=== PATIENT | female | born 1925 | race Caucasian/White ===

== ENCOUNTER 2017-02-06 14:53 | Inpatient (IN) | payer MEDICARE, OTHER ==
[~2017-02-06] VITALS: Ht 152.4 cm; Wt 79.4 kg
[~2017-02-06 14:53] MED LIST: Acetaminophen PO; Docusate Sodium PO; ZIPR80CA10 PO
[2017-02-06 15:28] LABS: BASOPHILS # (AUTO) 0.1 K/uL (0.0-8.0); BASOPHILS % (AUTO) 1.1 % (0.0-2.0); EOSINOPHILS # (AUTO) 0.1 K/uL (0.0-0.7); EOSINOPHILS % (AUTO) 1.2 % (0.0-7.0); HEMATOCRIT 36.1 % (37-47); LYMPHOCYTES # (AUTO) 1.9 K/uL (20.0-40.0); MEAN CORPUSCULAR HEMOGLOBIN 35.7 UUG (27.0-31.0); MEAN CORPUSCULAR HGB CONC 36 g/dL (32.0-37.0); MEAN CORPUSCULAR VOLUME 98.9 FL (81.0-99.0); MONOCYTES # (AUTO) 0.8 K/uL (2.0-10.0); NEUTROPHILS # (AUTO) 3.4 K/uL (1.8-8.9); NEUTROPHILS % (AUTO) 53.7 % (38.5-71.5); PLATELET COUNT (AUTO) 206 K/UL (150-450); RED BLOOD CELL COUNT(AUTO) 3.65 MIL/UL (4.2-5.4); RED CELL DISTRIBUTION WIDTH 13.8 % (11.5-14.5); WHITE BLOOD COUNT (AUTO) 6.3 K/UL (4.0-11.2)
[2017-02-06 15:31] LABS: CREATININE 1.2 mg/dL (0.6-1.3); POTASSIUM 3.4 mmol/L (3.5-5.1)
[2017-02-06 15:44] LABS: ALBUMIN 2.9 g/dL (3.4-5.0); BILIRUBIN,DIRECT 0.1 mg/dL (0.0-0.2); BILIRUBIN,TOTAL 0.3 mg/dL (0.2-1.0)
[2017-02-06] MEDS ORDERED: LORA-258 PO (16:26)
[2017-02-06] MEDS ORDERED: ZIPR80CA2 PO (16:26)
[2017-02-06] MEDS ORDERED: POTASSIUM PO (16:26)
[2017-02-06] MEDS ORDERED: FURO-151 PO (16:26)
[2017-02-06] MEDS ORDERED: PROG50VI3 PO (16:26)
--- NOTE | 2017-02-06 16:30 | NUR ---
pt requesting to sit on the bedside commode. tried to do so, pt co ble pain, unable to tolerate sitting on bedside commode. bed bailey provided per pt request.
[2017-02-06 17:45] VITALS: BP 123/65
--- NOTE | 2017-02-06 19:15 | NUR ---
PATIENT AWAKE, VERBALLY RESPONSIVE, NO SOB NO CHEST PAIN NOTED, KEPT CLEAN AND DRY, ELEVATE BILATERAL FEET WITH PILLOW NO S/S OF DISTRESS.
[2017-02-06] MEDS ORDERED: MAGNESIUM HYDROXIDE 30 ML LIQUID UDC PO PRN (19:45)
[2017-02-06] MEDS ORDERED: ONDANSETRON 4 MG/2 ML VIAL IV PRN (19:45)
[2017-02-06] MEDS ORDERED: LORAZEPAM 0.5 MG TABLET PO PRN (19:45)
[2017-02-06] MEDS ORDERED: MORPHINE SULFATE 2 MG/1 ML DISP.SYRIN IV PRN (19:45)
[2017-02-06] MEDS ORDERED: PROGESTERONE 100 MG PO SCH (19:45)
[2017-02-06] MEDS ORDERED: POTASSIUM CHLORIDE 20 MEQ TAB.PRT.SR PO ONE (19:45)
[2017-02-06] MEDS ORDERED: Medication Not On Formulary EA ([Acetaminophen] (Tylenol) 650 MG) PO PRN (19:45)
[2017-02-06] MEDS ORDERED: ACETAMINOPHEN 325 MG TABLET PO PRN (20:15)
[2017-02-06 20:18] VITALS: BP 115/62
[2017-02-06] MEDS: ZIPRASIDONE 80 MG CAPSULE PO SCH (20:29)
[2017-02-06] MEDS: DOCUSATE SODIUM 100 MG CAPSULE PO SCH (20:29)
[2017-02-06] MEDS ORDERED: ZIPRASIDONE 80 MG CAPSULE PO SCH ×2 (21:00)
[2017-02-06] MEDS ORDERED: Medication Not On Formulary EA ([Docusate Sodium] (Colace) 200 MG) PO SCH (21:00)
[2017-02-07 00:03] VITALS: BP 120/65
[2017-02-07 04:00] VITALS: BP 97/52
--- NOTE | 2017-02-07 05:11 | NUR ---
PATIENT SLEPT MOST OF THE NIGHT, ELEVATE BILATERAL FEET DUE TO SWELLING, NO SOB NO CHEST PAIN NOTED, KEPT CLEAN AND DRY, NO S/S OF DISTRESS.
[2017-02-07] MEDS: PANTOPRAZOLE SODIUM 40 MG TABLET.DR PO SCH (05:54)
[2017-02-07 06:32] LABS: BASOPHILS # (AUTO) 0.1 K/uL (0.0-8.0); BASOPHILS % (AUTO) 1.4 % (0.0-2.0); EOSINOPHILS # (AUTO) 0.2 K/uL (0.0-0.7); EOSINOPHILS % (AUTO) 2.8 % (0.0-7.0); HEMATOCRIT 30.8 % (37-47); HEMOGLOBIN 11.7 G/DL (12.0-16.0); LYMPHOCYTES # (AUTO) 2.1 K/UL (0.8-4.8); LYMPHOCYTES % (AUTO) 38.8 % (20.5-51.5); MEAN CORPUSCULAR HEMOGLOBIN 37.4 UUG (27.0-31.0); MEAN CORPUSCULAR HGB CONC 38 g/dL (32.0-37.0); MEAN CORPUSCULAR VOLUME 98.6 FL (81.0-99.0); MONOCYTES # (AUTO) 0.7 K/UL (0.1-1.30); MONOCYTES % (AUTO) 12.8 % (0.0-11.0); NEUTROPHILS # (AUTO) 2.4 K/UL (1.8-8.9); NEUTROPHILS % (AUTO) 44.2 % (38.5-71.5); PLATELET COUNT (AUTO) 193 K/UL (150-450); RED BLOOD CELL COUNT(AUTO) 3.12 MIL/UL (4.2-5.4); RED CELL DISTRIBUTION WIDTH 13.8 % (11.5-14.5); WHITE BLOOD COUNT (AUTO) 5.5 K/UL (4.0-11.2)
[2017-02-07 07:03] LABS: ALBUMIN 2.4 g/dL (3.4-5.0); BILIRUBIN,TOTAL 0.5 mg/dL (0.2-1.0); CALCIUM 8.7 mg/dL (8.5-10.1); CREATININE 1.1 mg/dL (0.6-1.3); MAGNESIUM 1.9 mg/dL (1.8-2.4); PHOSPHOROUS 3.3 mg/dL (2.5-4.9); POTASSIUM 3.8 mmol/L (3.5-5.1); TOTAL PROTEIN, SERUM 6.1 g/dL (6.4-8.2)
--- NOTE | 2017-02-07 07:30 | NUR ---
PT AWAKE IN BED, NO NEEDS AT THIS TIME, ALL SAFETY AND COMFORT MEASURES ATTENDED TO, CALL LIGHT IN REACH, WILL CONTINUE TO MONITOR
[2017-02-07] MEDS: Z GUARD REMEDY PASTE 57 GM TUBE TOP SCH ×2 (08:33→20:28)
[2017-02-07] MEDS: POTASSIUM CHLORIDE 8 MEQ CAPSULE.SA PO SCH ×2 (08:33→17:00)
[2017-02-07] MEDS: FUROSEMIDE 40 MG TABLET PO SCH (08:33)
[2017-02-07] MEDS ORDERED: POTASSIUM 8 MEQ PO SCH (09:00)
[2017-02-07 11:11] VITALS: BP 101/49
[2017-02-07] MEDS ORDERED: BARIUM SULFATE 450 ML ORAL.SUSP ONE (14:30)
[2017-02-07 15:27] VITALS: BP 104/51
[2017-02-07 15:36] LABS: *BILIRUBIN,URIN NEGATIVE (NEGATIVE); *BLOOD, URINE 1+ (NEGATIVE); *COLOR,URINE YELLOW (YELLOW); *KETONES,URINE NEGATIVE (NEGATIVE); *PROTEIN,URINE NEGATIVE (NEGATIVE); *UROBILINOGEN,URINE 0.2 E.U./dl (NORMAL); LEUKOCYTE ESTERASE ,URINE 1+ (NEGATIVE); NITRITE, URINE NEGATIVE (NEGATIVE); PH,URINE 7.5 (5.0-8.0); UGLUCOSE NEGATIVE (NEGATIVE)
[2017-02-07] MEDS ORDERED: NORMAL SALINE FLUSH 10 ML DISP.SYRIN ONE (15:39)
[2017-02-07] MEDS ORDERED: IOHEXOL 300MG/ML 100 ML INFUS..BTL ONE (15:39)
[2017-02-07] MEDS ORDERED: IV NORMAL SALINE 250 ML IV ONE (15:39)
[2017-02-07 15:48] LABS: *CLARITY,URINE HAZY (CLEAR)
[2017-02-07 15:49] LABS: SQUAMOUS EPITHELIAL CELL,UR MODERATE /HPF (NONE SEEN)
--- NOTE | 2017-02-07 17:05 | NUR ---
PT FINISHED CONTRAST, RADIOLOGY CALLED AND WILL BE PICKING UP PT IN 20 MIN
--- NOTE | 2017-02-07 17:50 | NUR ---
1700 POTASSIUM MEDICATION NOT GIVEN, PT NPO FOR CT SCAN. STILL HAS NOT BEEN PICKED UP.
--- NOTE | 2017-02-07 17:58 | NUR ---
RADIOLOGY HERE TO TAKE PT FOR CT SCAN
--- NOTE | 2017-02-07 18:26 | NUR ---
PT BACK FROM CT SCAN, IN NO ACUTE DISTRESS. NO CHANGES NOTED THROUGHOUT SHIFT, CALL LIGHT IN REACH AND DAUGHTER AT BEDSIDE
--- NOTE | 2017-02-07 19:30 | NUR ---
RECEIVED PT IN BED, RESTING. IN NO ACUTE SIGNS OF DISTRESS. FAMILY AT BEDSIDE. NO C/O PAIN AT THIS TIME. SAFETY OBSERVED. CALL LIGHT WITHIN REACH.
[2017-02-07 20:00] VITALS: BP 138/76
[2017-02-07] MEDS: DOCUSATE SODIUM 100 MG CAPSULE PO SCH (20:27)
[2017-02-07] MEDS: ZIPRASIDONE 80 MG CAPSULE PO SCH (20:27)
[2017-02-07] MEDS ORDERED: CEFTRIAXONE 1 G in IV DEXTROSE 5% 50 ML IV SCH (21:15)
[2017-02-07] MEDS ORDERED: CEFTRIAXONE 1 G VIAL ONE (22:25)
[2017-02-07 23:02] VITALS: BP 138/76
[2017-02-08 00:17] VITALS: BP 102/32
[2017-02-08 04:00] VITALS: BP 101/58
--- NOTE | 2017-02-08 05:57 | NUR ---
PT SLEPT MOST SHIFT, IN NO ACUTE SIGNS OF DISTRESS. HAD MODERATE SOFT BM X1 DURING SHIFT. GOOD PERICARE DONE. TURNED AND REPOSITIONED. SAFETY MAINTAINED. CALL LIGHT WITHIN REACH.
[2017-02-08] MEDS: PANTOPRAZOLE SODIUM 40 MG TABLET.DR PO SCH (06:13)
[2017-02-08 06:53] LABS: ALBUMIN 2.3 g/dL (3.4-5.0); BILIRUBIN,TOTAL 0.4 mg/dL (0.2-1.0); CALCIUM 8.2 mg/dL (8.5-10.1); CREATININE 1.2 mg/dL (0.6-1.3); MAGNESIUM 1.9 mg/dL (1.8-2.4); PHOSPHOROUS 3.9 mg/dL (2.5-4.9); POTASSIUM 3.6 mmol/L (3.5-5.1); TOTAL PROTEIN, SERUM 5.7 g/dL (6.4-8.2)
--- NOTE | 2017-02-08 07:00 | NUR ---
RECEIVED PATIENT FROM DIRECTOR OF MATERIALS MANAGEMENT
[2017-02-08 07:44] LABS: BASOPHILS # (AUTO) 0.1 K/uL (0.0-8.0); BASOPHILS % (AUTO) 1.1 % (0.0-2.0); EOSINOPHILS # (AUTO) 0.2 K/uL (0.0-0.7); EOSINOPHILS % (AUTO) 2.5 % (0.0-7.0); LYMPHOCYTES # (AUTO) 2.4 K/UL (0.8-4.8); LYMPHOCYTES % (AUTO) 36.4 % (20.5-51.5); MEAN CORPUSCULAR HEMOGLOBIN 31.1 UUG (27.0-31.0); MEAN CORPUSCULAR HGB CONC 33 g/dL (32.0-37.0); MEAN CORPUSCULAR VOLUME 93.3 FL (81.0-99.0); MONOCYTES # (AUTO) 0.8 K/UL (0.1-1.30); MONOCYTES % (AUTO) 11.7 % (0.0-11.0); NEUTROPHILS # (AUTO) 3.2 K/UL (1.8-8.9); NEUTROPHILS % (AUTO) 48.3 % (38.5-71.5); PLATELET COUNT (AUTO) 190 K/UL (150-450); RED BLOOD CELL COUNT(AUTO) 3.53 MIL/UL (4.2-5.4); RED CELL DISTRIBUTION WIDTH 13.8 % (11.5-14.5); WHITE BLOOD COUNT (AUTO) 6.7 K/UL (4.0-11.2)
[2017-02-08] MEDS: POTASSIUM CHLORIDE 8 MEQ CAPSULE.SA PO SCH ×2 (08:37→16:54)
[2017-02-08] MEDS: FUROSEMIDE 40 MG TABLET PO SCH (08:37)
[2017-02-08] MEDS: Z GUARD REMEDY PASTE 57 GM TUBE TOP SCH ×2 (08:44→20:41)
[2017-02-08] MEDS ORDERED: PATIENT MAY USE OWN MED- MD OK PO SCH (10:00)
--- NOTE | 2017-02-08 10:00 | NUR ---
PATIENT SEEN WALKING WITH PT, TOLERATED WELL
[2017-02-08 11:24] VITALS: BP 101/53
[2017-02-08 15:33] VITALS: BP 102/51
--- NOTE | 2017-02-08 16:21 | NUR ---
CONTINUE RESPIRATOY MONITORING, NO SIGNS OF DISTRESS OR C/O PAIN.
--- NOTE | 2017-02-08 18:52 | NUR ---
GAVE REPORT TO [employer], SAFETY CHECK, BED IN LOW POSITION, WHEELS LOCKED, SIDE RAILS UP X2
[2017-02-08 19:00] VITALS: BP 120/61
--- NOTE | 2017-02-08 19:10 | NUR ---
PATIENT AWAKE NO SOB NO CHEST PAIN NOTED, LOWER LEG ELEVATED WITH PILLOW, SWELLING SUBSIDED FAIRLY, CONT ABX FOR UTI WITH NO ADVERSE REACTION NOTED. CONT TO MONITOR.
[2017-02-08] MEDS: ZIPRASIDONE 80 MG CAPSULE PO SCH (20:39)
[2017-02-08] MEDS: DOCUSATE SODIUM 100 MG CAPSULE PO SCH (20:39)
[2017-02-08] MEDS: CEFTRIAXONE 1 G in IV DEXTROSE 5% 50 ML IV SCH (21:01)
[2017-02-09 04:00] VITALS: BP 97/50
--- NOTE | 2017-02-09 05:17 | NUR ---
PATIENT SLEPT MOST OF THE NIGHT, NO SOB NO CHEST PAIN NOTED, NO WHEEZING NOTED, KEPT HOB ELEVATED, KEPT CLEAN AND DRY, CONT TX ON RIGHT GROIN REDNESS, NO S/S OF DISTRESS.
[2017-02-09] MEDS: PANTOPRAZOLE SODIUM 40 MG TABLET.DR PO SCH (05:56)
--- NOTE | 2017-02-09 07:10 | NUR ---
RECEIVED PATIENT FROM [employer], SAFETY CHECK, BED IN LOW POSITION, SIDE RAILS UP X2
[2017-02-09 08:00] VITALS: BP 100/72
[2017-02-09] MEDS: POTASSIUM CHLORIDE 8 MEQ CAPSULE.SA PO SCH ×2 (08:34→17:35)
[2017-02-09] MEDS: Z GUARD REMEDY PASTE 57 GM TUBE TOP SCH (08:34)
[2017-02-09] MEDS ORDERED: POTASSIUM CHLORIDE 20 MEQ TAB.PRT.SR PO ONE (10:15)
[2017-02-09 11:32] VITALS: BP 108/53
[2017-02-09 15:34] VITALS: BP 132/54
[2017-02-09 15:36] VITALS: BP 102/53
[2017-02-09] MEDS ORDERED: Furosemide PO (17:42)
[2017-02-09] MEDS ORDERED: PANT40TA2 PO (17:42)
[2017-02-09] MEDS ORDERED: MAGN400O4 PO (17:42)
[2017-02-09] MEDS ORDERED: MULT-1045 PO (17:42)
[2017-02-09] MEDS ORDERED: CEFT1VIA15 IV (17:42)
[2017-02-09] MEDS ORDERED: LORA0.5T48 PO (17:42)
--- NOTE | 2017-02-09 17:53 | NUR ---
DISCHARGE ORDERS RECEIVED FROM MD, PATIENT WILL BE TRANSFERRED TO [facility].
--- NOTE | 2017-02-09 18:20 | NUR ---
The patient will be discharged today to [facility] [ ; [address], [place] [address]] via [facility]. Spoke to the patient and her daughter and they requested for [facility] because she was there in the past and was happy with their care. They requested to go to [facility] because she knows the staff there. Sp[facility] to In[facility] from [facility] and she confirmed that they will admit the patient to [facility] today. The family also requested for her to get the dose of antibiotics today and be discharged later so they can be with her. Inge agreed with the late discharge. Her RN, Precious, is aware of her discharge plan and will call the facility for the report.
--- NOTE | 2017-02-09 18:54 | NUR ---
REPORT GIVEN TO LETICIA AT [facility]. FINAL DOSE OF ROCEFIN ADMINISTERED.
--- NOTE | 2017-02-09 18:55 | NUR ---
REPORT GIVEN TO [employer] ABOUT THE PENDING FIRE CONTROL OFFICER BY TRANSPORT
[2017-02-09] MEDS: CEFTRIAXONE 1 G in IV DEXTROSE 5% 50 ML IV SCH (19:00)
[2017-02-09] MEDS: ZIPRASIDONE 80 MG CAPSULE PO SCH (20:03)
[2017-02-09] MEDS: DOCUSATE SODIUM 100 MG CAPSULE PO SCH (20:03)
--- NOTE | 2017-02-09 20:23 | NUR ---
PATIENT WAS PICKED UP BY AMBULANCE TO GO [facility] IN [facility] CONDITION, ALL BELONGINGS TAKEN, ACCOMPANIED BY DAUGHTER. IV HEPLOCK 20 ON RIGHT HAND INTACT.
[2017-02-10] MEDS ORDERED: FUROSEMIDE 40 MG TABLET PO SCH (09:00)
[2017-02-10] MEDS ORDERED: FUROSEMIDE 20 MG TABLET PO SCH (09:00)
== END 2017-02-09 20:24 | DRG 754 ==
LOC: ER 14:56 → TELE 16:50 → MED 02-08 10:22
PROVIDERS: ADMIT Internal Medicine; ATTEND Internal Medicine
DX: C56.1 Malignant neoplasm of right ovary (principal); N17.0 Acute kidney failure with tubular necrosis; E43 Unspecified severe protein-calorie malnutrition; G93.40 Encephalopathy, unspecified; E87.0 Hyperosmolality and hypernatremia; D68.59 Other primary thrombophilia; I50.32 Chronic diastolic (congestive) heart failure; K86.1 Other chronic pancreatitis; N39.0 Urinary tract infection, site not specified; C55 Malignant neoplasm of uterus, part unspecified; E78.5 Hyperlipidemia, unspecified; E87.6 Hypokalemia; F32.9 Major depressive disorder, single episode, unspecified; F41.9 Anxiety disorder, unspecified; H35.30 Unspecified macular degeneration; Z74.09 Other reduced mobility; M81.0 Age-related osteoporosis without current pathological fracture; D25.9 Leiomyoma of uterus, unspecified; N83.9 Noninflammatory disorder of ovary, fallopian tube and broad ligament, unspecified; M19.90 Unspecified osteoarthritis, unspecified site; K57.90 Diverticulosis of intestine, part unspecified, without perforation or abscess without bleeding; K80.20 Calculus of gallbladder without cholecystitis without obstruction; G31.84 Mild cognitive impairment of uncertain or unknown etiology; I48.0 Paroxysmal atrial fibrillation; M41.9 Scoliosis, unspecified; Z82.49 Family history of ischemic heart disease and other diseases of the circulatory system
CPT/HCPCS: 36415; 70030-TC; 71010; 83735; 84100; 85025; 85730; 87086; 93005; 97001; 97116; 97530; A4663; J0696; J3490; J7040; J7050; J7060; Q9951; Q9967

== ENCOUNTER 2017-03-10 16:48 | Emergency (ER) | payer MEDICARE, OTHER ==
[~2017-03-10] VITALS: Ht 152.4 cm; Wt 81.6 kg
[~2017-03-10 16:48] MED LIST changes: +CEFT1VIA15 IV; +Furosemide PO; +LORA0.5T48 PO; +MAGN400O4 PO; +MULT-1045 PO; +PANT40TA2 PO; +POTASSIUM PO; +PROG50VI3 PO; -ZIPR80CA10 PO; +ZIPR80CA2 PO
[2017-03-10] MEDS ORDERED: POTA10CA43 PO (18:33)
[2017-03-10] MEDS ORDERED: FURO-152 PO (18:33)
--- NOTE | 2017-03-10 18:48 | NUR ---
PT DIAPER HAVE BEEN CHANGED X 4-5 TIMES AFTER ONLY HAVE A FEW DROPS OF URINE IN IT, PER PT'S REQUEST
--- NOTE | 2017-03-10 18:57 | NUR ---
BLADDER SCAN AT BEDSIDE PER MD'S REQUEST
[2017-03-10 19:12] LABS: BASOPHILS # (AUTO) 0.1 K/uL (0.0-8.0); EOSINOPHILS # (AUTO) 0.1 K/uL (0.0-0.7); EOSINOPHILS % (AUTO) 1.4 % (0.0-7.0); HEMATOCRIT 37.2 % (37-47); HEMOGLOBIN 12.8 G/DL (12.0-16.0); LYMPHOCYTES # (AUTO) 1.9 K/UL (0.8-4.8); LYMPHOCYTES % (AUTO) 31.3 % (20.5-51.5); MEAN CORPUSCULAR HEMOGLOBIN 32.5 UUG (27.0-31.0); MEAN CORPUSCULAR HGB CONC 34 g/dL (32.0-37.0); MEAN CORPUSCULAR VOLUME 94.5 FL (81.0-99.0); MONOCYTES # (AUTO) 0.7 K/UL (0.1-1.30); MONOCYTES % (AUTO) 11.2 % (0.0-11.0); NEUTROPHILS # (AUTO) 3.1 K/UL (1.8-8.9); NEUTROPHILS % (AUTO) 55.1 % (38.5-71.5); PLATELET COUNT (AUTO) 235 K/UL (150-450); RED BLOOD CELL COUNT(AUTO) 3.94 MIL/UL (4.2-5.4); WHITE BLOOD COUNT (AUTO) 5.9 K/UL (4.0-11.2)
--- NOTE | 2017-03-10 19:20 | NUR ---
Bladder scan performed after patient voided, approximately 180 ml remain in bladder.
[2017-03-10 19:21] LABS: CARBON DIOXIDE 30 mmol/L (21-32); CHLORIDE 111 mmol/L (98-107); CREATININE 1.2 mg/dL (0.6-1.3); GLUCOSE 113 mg/dL (74-106); POTASSIUM 3.5 mmol/L (3.5-5.1); UREA NITROGEN, BLOOD 23 mg/dL (7-18)
[2017-03-10 19:33] LABS: ALANINE AMINOTRANSFERASE 22 U/L (14-59); ALKALINE PHOSPHATASE 107 U/L (50-136); ASPARTATE AMINOTRANSFERASE 21 U/L (15-37); BILIRUBIN,DIRECT 0.1 mg/dL (0.0-0.2); BILIRUBIN,TOTAL 0.2 mg/dL (0.2-1.0); TOTAL PROTEIN, SERUM 6.6 g/dL (6.4-8.2)
--- NOTE | 2017-03-10 20:00 | NUR ---
Radiology at bedside for US.
[2017-03-10 20:55] LABS: *BILIRUBIN,URIN NEGATIVE (NEGATIVE); *BLOOD, URINE Trace-intact (NEGATIVE); *CLARITY,URINE CLEAR (CLEAR); *COLOR,URINE STRAW (YELLOW); *KETONES,URINE NEGATIVE (NEGATIVE); *PROTEIN,URINE NEGATIVE (NEGATIVE); *UROBILINOGEN,URINE 0.2 E.U./dl (NORMAL); LEUKOCYTE ESTERASE ,URINE NEGATIVE (NEGATIVE); NITRITE, URINE NEGATIVE (NEGATIVE); UGLUCOSE NEGATIVE (NEGATIVE)
[2017-03-10 21:01] LABS: BACTERIA,URINE NONE SEEN /HPF (NONE SEEN); RBC,URINE 0-3 /HPF (0-3); SQUAMOUS EPITHELIAL CELL,UR FEW /HPF (NONE SEEN); WBC,URINE 0-3 /HPF (0-3)
--- NOTE | 2017-03-10 21:28 | NUR ---
Patient discharged to home in stable conditon. Written and verbal after care instructions given. Patient verbalizes understanding of instructions.
== END 2017-03-10 21:29 | disposition home or self-care (01) ==
LOC: ER 16:55
DX: R60.0 Localized edema (principal); I50.9 Heart failure, unspecified; M19.90 Unspecified osteoarthritis, unspecified site; F32.9 Major depressive disorder, single episode, unspecified; F41.9 Anxiety disorder, unspecified; H35.30 Unspecified macular degeneration
CPT/HCPCS: 36415; 71010; 85025; 85730; A4663